=== PATIENT | male | born 2000 | race African-American/Black ===

== ENCOUNTER 2021-03-21 11:06 | Emergency (ER) | payer SELFPAY ==
[2021-03-21 11:53] LABS: HEMOGLOBIN 15.2 gm/dl (14.0-17.5); RED BLOOD COUNT 5.4 M/UL (4.20-5.50); WHITE BLOOD COUNT 10.6 K/UL (4.5-11.0)
[2021-03-21 12:25] LABS: BUN/CREATININE RATIO 9 (0-10)
[2021-03-21] MEDS ORDERED: BENTYL 20MG TAB20 MG PO (15:50)
[2021-03-21] MEDS ORDERED: ZOFRAN4 MG PO (15:50)
== END 2021-03-21 16:00 | disposition home or self-care (01) ==
LOC: ER1 11:06
PROVIDERS: Nurse Practitioner; Physician Assistant Medical
DX: R10.9 Unspecified abdominal pain (principal); R11.2 Nausea with vomiting, unspecified; F17.200 Nicotine dependence, unspecified, uncomplicated
CPT/HCPCS: 80053; 80307; 81001; 83605; 83690; 85025; 93005; 99284; C9113; G0480; J1885; J2405; J7030